=== PATIENT | male | born 1980 | race Two or more races ===

== ENCOUNTER 2018-01-29 16:05 | Emergency (ER) | payer MEDICAID ==
[~2018-01-29] VITALS: Ht 165.1 cm; Wt 96.0 kg
[2018-01-29 17:06] LABS: BASOPHILS % 0.7 % (0.0-2.0); EOSINOPHILS % 4.8 % (0.0-5.0); HEMATOCRIT. 41.4 % (42.0-52.0); HEMOGLOBIN. 14.4 g/dL (14.0-18.0); LYMPHOCYTES % 16.8 % (20.0-50.0); MEAN CORPUSCULAR HEMOGLOBIN 30.7 pg (28.0-32.0); MEAN CORPUSCULAR VOLUME 88.2 fL (80.0-94.0); MEAN PLATELET VOLUME 8.7 fl (7.4-10.4); MONOCYTES % 5.5 % (2.0-8.0); NEUTROPHILS % 72.2 % (40.0-76.0); PLATELET 289 x1000/uL (130-400); RED CELL DISTRIBUTION WIDTH 13.4 % (11.6-14.6)
[2018-01-29 17:09] LABS: CHLORIDE 109 mEq/L (98-107)
[2018-01-29 17:12] LABS: PARTIAL THROMBOPLASTIN TIME 28.2 sec (23.4-31.0); PROTHROMBIN TIME 10.9 sec (9.4-11.6)
[2018-01-29] MEDS ORDERED: ONDANSETRON HCL 4MG/2ML VIAL IV STA (18:33)
[2018-01-29] MEDS ORDERED: SODIUM CHLORIDE 0.9% 1,000 ML IV ONE (18:33)
[2018-01-29] MEDS ORDERED: MAGNESIUM/ALUMINUM HYDROXIDE/SIMETHICONE 30ML UDC PO STA (18:33)
[2018-01-29] MEDS ORDERED: KETOROLAC 30MG/ML VIAL IV STA (18:33)
[2018-01-29] MEDS ORDERED: MORPHINE SULFATE 4 MG/ML CPJ (NOT FOR IM USE) IV STA (18:33)
[2018-01-29] MEDS ORDERED: FAMOTIDINE 20MG/2ML VIAL IV ONE (18:45)
[2018-01-29 19:23] LABS: CREATINE KINASE 221 IU/L (39-308)
[2018-01-29 19:26] LABS: CLARITY URINE CLEAR (CLEAR); COLOR URINE DARK YELLOW (YELLOW); KETONES URINE TRACE (NEGATIVE); LEUKOCYTE ESTERASE URINE NEGATIVE (NEGATIVE); NITRITE URINE NEGATIVE (NEGATIVE); OCCULT BLOOD URINE NEGATIVE (NEGATIVE); PROTEIN URINE TRACE (NEGATIVE); SPECIFIC GRAVITY URINE 1.032 (1.005-1.030)
[2018-01-29 19:41] LABS: *AMPHETAMINES SCREEN URINE NEGATIVE (NEGATIVE); *BARBITURATES SCREEN URINE NEGATIVE (NEGATIVE); *BENZODIAZEPINES SCREEN URINE NEGATIVE (NEGATIVE); *COCAINE SCREEN URINE NEGATIVE (NEGATIVE); METHADONE URINE SCREEN NEGATIVE (NEGATIVE); OPIATES URINE SCREEN NEGATIVE (NEGATIVE)
[2018-01-29 19:42] LABS: CANNABINOID URINE SCREEN NEGATIVE (NEGATIVE); PHENCYCLIDINE URINE SCREEN NEGATIVE (NEGATIVE)
[2018-01-29 23:16] VITALS: BP 126/75
== END 2018-01-29 23:20 | disposition home or self-care (01) ==
LOC: ER 16:05
DX: M94.0 Chondrocostal junction syndrome [Tietze] (principal); N39.0 Urinary tract infection, site not specified; B34.9 Viral infection, unspecified; F41.9 Anxiety disorder, unspecified; Z79.899 Other long term (current) drug therapy
CPT/HCPCS: 36415; 71045; 74176; 80053; 80305; 81003; 82550; 83690; 84484; 85025; 85610; 85730; 93005; 96361; 96374; 96375; 99285; J1885; J2270; J2405; J3490; J7030

== ENCOUNTER 2018-02-01 16:26 | Emergency (ER) | payer MEDICAID ==
[~2018-02-01] VITALS: Ht 157.5 cm; Wt 94.0 kg
[2018-02-01] MEDS ORDERED: SODIUM CHLORIDE 0.9% 1,000 ML IV ONE (19:57)
[2018-02-01] MEDS ORDERED: LORAZEPAM 2MG/ML CPJ IV ONE (20:00)
[2018-02-01 20:26] LABS: BASOPHILS % 0.6 % (0.0-2.0); EOSINOPHILS % 2.9 % (0.0-5.0); HEMATOCRIT. 40.8 % (42.0-52.0); HEMOGLOBIN. 13.9 g/dL (14.0-18.0); LYMPHOCYTES % 21.6 % (20.0-50.0); MEAN CORPUSCULAR HEMOGLOBIN 30.2 pg (28.0-32.0); MEAN CORPUSCULAR VOLUME 88.6 fL (80.0-94.0); MEAN PLATELET VOLUME 8.6 fl (7.4-10.4); MONOCYTES % 6.2 % (2.0-8.0); NEUTROPHILS % 68.7 % (40.0-76.0); PLATELET 286 x1000/uL (130-400); RED CELL DISTRIBUTION WIDTH 13.2 % (11.6-14.6)
[2018-02-01 20:27] LABS: CHLORIDE 110 mEq/L (98-107)
[2018-02-02] MEDS ORDERED: KETOROLAC 30MG/ML VIAL IV ONE
[2018-02-02 00:42] VITALS: BP 150/79
== END 2018-02-02 00:42 | disposition home or self-care (01) ==
LOC: ER 17:06
DX: F41.9 Anxiety disorder, unspecified (principal); R07.9 Chest pain, unspecified; E86.0 Dehydration; Z72.0 Tobacco use
CPT/HCPCS: 36415; 70450; 80053; 84484; 85025; 93005; 96361; 96374; 96375; 99285; J1885; J2060; J7030; Z7610

== ENCOUNTER 2018-09-02 04:50 | Emergency (ER) | payer MEDICAID ==
[~2018-09-02] VITALS: Ht 167.6 cm; Wt 101.0 kg
[2018-09-02] MEDS ORDERED: KETOROLAC 30MG/ML VIAL IV STA (06:54)
[2018-09-02] MEDS ORDERED: HYDRALAZINE 20MG/ML VIAL IV ONE (07:00)
[2018-09-02 07:31] LABS: BASOPHILS % 0.3 % (0.0-2.0); HEMATOCRIT. 42.2 % (42.0-52.0); HEMOGLOBIN. 14.6 g/dL (14.0-18.0); LYMPHOCYTES % 15.3 % (20.0-50.0); MEAN CORPUSCULAR HEMOGLOBIN 30.7 pg (28.0-32.0); MEAN CORPUSCULAR VOLUME 88.7 fL (80.0-94.0); MEAN PLATELET VOLUME 8.3 fl (7.4-10.4); MONOCYTES % 5.7 % (2.0-8.0); NEUTROPHILS % 76.7 % (40.0-76.0); PLATELET 253 x1000/uL (130-400); RED BLOOD CELL COUNT 4.75 mill/uL (4.7-6.1)
[2018-09-02 07:37] LABS: CHLORIDE 107 mEq/L (98-107)
[2018-09-02] MEDS ORDERED: IOHEXOL-350 100 ML BOTTLE ONE (10:09)
[2018-09-02 11:01] VITALS: BP 128/85
== END 2018-09-02 11:19 | disposition home or self-care (01) ==
LOC: ER 04:50
DX: R07.89 Other chest pain (principal); M54.89 Other dorsalgia; M25.512 Pain in left shoulder; M25.511 Pain in right shoulder; I10 Essential (primary) hypertension
CPT/HCPCS: 36415; 71045; 71275; 80053; 84484; 85025; 85610; 93005; 96374; 96375; 99284; J0360; J1885; Q9967; Z7610

== ENCOUNTER 2018-12-11 19:21 | Emergency (ER) | payer MEDICAID ==
[~2018-12-11] VITALS: Ht 165.1 cm; Wt 99.3 kg
[2018-12-11] MEDS ORDERED: KETOROLAC 60MG/2ML VIAL IM ONE (22:45)
[2018-12-11 22:46] VITALS: BP 155/89
== END 2018-12-11 23:48 | disposition home or self-care (01) ==
LOC: ER 19:21
DX: M54.5 Low back pain (principal); I10 Essential (primary) hypertension; W01.0XXA Fall on same level from slipping, tripping and stumbling without subsequent striking against object, initial encounter; Y93.89 Activity, other specified; Y92.89 Other specified places as the place of occurrence of the external cause; Y99.0 Civilian activity done for income or pay; Z91.14 Patient's other noncompliance with medication regimen; F17.210 Nicotine dependence, cigarettes, uncomplicated; Z71.6 Tobacco abuse counseling
CPT/HCPCS: 72070; 72100; 96372; 99283; 99406; J1885

== ENCOUNTER 2019-01-07 16:04 | Emergency (ER) | payer MEDICAID ==
[~2019-01-07] VITALS: Ht 162.6 cm; Wt 102.8 kg
[2019-01-07 16:17] VITALS: BP 148/103
[2019-01-07] MEDS ORDERED: IBUPROFEN 600MG TABLET PO ONE (18:15)
== END 2019-01-07 18:26 | disposition home or self-care (01) ==
LOC: ER 16:04
DX: M54.5 Low back pain (principal); M54.2 Cervicalgia; H53.8 Other visual disturbances; F17.200 Nicotine dependence, unspecified, uncomplicated; R51 Headache; R42 Dizziness and giddiness; R11.0 Nausea
CPT/HCPCS: 99281

== ENCOUNTER 2019-08-19 04:18 | Inpatient (IN) | payer MEDICAID, OTHER ==
[~2019-08-19] VITALS: Ht 162.6 cm; Wt 98.4 kg
[2019-08-19 08:04] LABS: BASOPHILS % 0.7 % (0.0-2.0); EOSINOPHILS % 4.2 % (0.0-5.0); HEMATOCRIT. 41.4 % (42.0-52.0); HEMOGLOBIN. 14.3 g/dL (14.0-18.0); LYMPHOCYTES % 20.8 % (20.0-50.0); MEAN CORPUSCULAR HEMOGLOBIN 31.5 pg (28.0-32.0); MEAN CORPUSCULAR VOLUME 91.2 fL (80.0-94.0); MEAN PLATELET VOLUME 8.8 fl (7.4-10.4); MONOCYTES % 6.5 % (2.0-8.0); NEUTROPHILS % 67.8 % (40.0-76.0); PLATELET 282 x1000/uL (130-400); RED BLOOD CELL COUNT 4.55 mill/uL (4.7-6.1); RED CELL DISTRIBUTION WIDTH 13.2 % (11.6-14.6)
[2019-08-19 08:12] LABS: CHLORIDE 110 mEq/L (98-107)
[2019-08-19] MEDS ORDERED: ACETAMINOPHEN 325MG TABLET PO ONE (08:45)
[2019-08-19] MEDS ORDERED: IOHEXOL-350 100 ML BOTTLE ONE (10:35)
[2019-08-19] MEDS ORDERED: ASPIRIN 81MG TABLET PO ONE (12:00)
[2019-08-19] MEDS ORDERED: LABETALOL 5MG/ML SYR 20 MG/4 ML SYRINGE IV ONE (12:45)
[2019-08-19] MEDS ORDERED: LIDOCAINE 5% PATCH TOP SCH (13:30)
[2019-08-19] MEDS ORDERED: ACETAMINOPHEN 325MG TABLET PO PRN (15:15)
[2019-08-19] MEDS ORDERED: ONDANSETRON HCL 4MG/2ML INJ IV PRN (15:15)
[2019-08-19] MEDS ORDERED: AMLODIPINE 5MG TABLET PO SCH (16:45)
[2019-08-19] MEDS ORDERED: REGADENOSON 0.4 MG/5 ML IV ONE (17:00)
[2019-08-19 17:34] VITALS: BP 162/90
[2019-08-19 18:00] VITALS: BP 162/90
[2019-08-19] MEDS ORDERED: IBUP-2437 PO (18:11)
[2019-08-19 20:00] VITALS: BP 139/87
[2019-08-19] MEDS: HEPARIN 5000 UNITS/ML VIAL SUBCUT SCH (22:59)
[2019-08-19] MEDS: ATORVASTATIN CALCIUM 10MG TABLET PO SCH (22:59)
[2019-08-19 23:08] LABS: *AMPHETAMINES SCREEN URINE NEGATIVE (NEGATIVE); *BARBITURATES SCREEN URINE NEGATIVE (NEGATIVE); *BENZODIAZEPINES SCREEN URINE NEGATIVE (NEGATIVE); *COCAINE SCREEN URINE NEGATIVE (NEGATIVE)
[2019-08-19 23:09] LABS: CANNABINOID URINE SCREEN NEGATIVE (NEGATIVE); METHADONE URINE SCREEN NEGATIVE (NEGATIVE); OPIATES URINE SCREEN NEGATIVE (NEGATIVE); PHENCYCLIDINE URINE SCREEN NEGATIVE (NEGATIVE)
[2019-08-20] VITALS: BP 143/68
[2019-08-20 04:00] VITALS: BP 141/84
[2019-08-20 07:06] LABS: BASOPHILS % 0.5 % (0.0-2.0); EOSINOPHILS % 4.1 % (0.0-5.0); HEMATOCRIT. 39.8 % (42.0-52.0); HEMOGLOBIN. 13.8 g/dL (14.0-18.0); LYMPHOCYTES % 21.5 % (20.0-50.0); MEAN CORPUSCULAR HEMOGLOBIN 31.7 pg (28.0-32.0); MEAN CORPUSCULAR VOLUME 91.5 fL (80.0-94.0); MEAN PLATELET VOLUME 9.2 fl (7.4-10.4); MONOCYTES % 6.3 % (2.0-8.0); NEUTROPHILS % 67.6 % (40.0-76.0); PLATELET 269 x1000/uL (130-400); RED BLOOD CELL COUNT 4.34 mill/uL (4.7-6.1); RED CELL DISTRIBUTION WIDTH 13.3 % (11.6-14.6)
[2019-08-20 08:00] VITALS: BP 117/82
[2019-08-20 08:28] LABS: CHLORIDE 110 mEq/L (98-107)
[2019-08-20 08:35] LABS: LDL CHOLESTEROL 83 mg/dL (5-100)
[2019-08-20 08:36] LABS: HDL CHOLESTEROL 33 mg/dL (40-59)
[2019-08-20] MEDS: HEPARIN 5000 UNITS/ML VIAL SUBCUT SCH ×2 (09:00→20:11)
[2019-08-20] MEDS: AMLODIPINE 5MG TABLET PO SCH (09:00)
[2019-08-20] MEDS ORDERED: REGADENOSON 0.4 MG/5 ML IV ONE (10:35)
[2019-08-20 12:00] VITALS: BP 131/72
[2019-08-20] MEDS: TRAMADOL 50MG TABLET PO PRN ×2 (15:40→21:45)
[2019-08-20 16:00] VITALS: BP 133/76
[2019-08-20 20:00] VITALS: BP 146/98
[2019-08-20] MEDS: ATORVASTATIN CALCIUM 10MG TABLET PO SCH (20:12)
[2019-08-21] VITALS: BP_SYST 156; BP_SYST 157; BP_SYST 163; BP_DIAS 109; BP_DIAS 112; BP_DIAS 96
[2019-08-21] MEDS ORDERED: DIPHENHYDRAMINE 25MG CAPSULE PO PRN ×2 (02:30→02:34)
[2019-08-21] MEDS ORDERED: CLONIDINE 0.1MG TABLET PO PRN (02:30)
[2019-08-21 04:00] VITALS: BP 134/89
[2019-08-21 08:00] VITALS: BP 125/65
[2019-08-21] MEDS: HEPARIN 5000 UNITS/ML VIAL SUBCUT SCH (08:54)
[2019-08-21] MEDS: AMLODIPINE 5MG TABLET PO SCH (08:55)
[2019-08-21 12:00] VITALS: BP 129/71
[2019-08-21] MEDS ORDERED: IBUP-2437 PO (13:10)
[2019-08-21] MEDS ORDERED: TOPUD PO (13:10)
[2019-08-21] MEDS ORDERED: AMLO5TAB88 PO (13:10)
[2019-08-21] MEDS ORDERED: TRAM50TA3 PO (13:11)
[2019-08-21 14:49] VITALS: BP 134/83
[2019-08-21 16:00] VITALS: BP 113/78
== END 2019-08-21 16:55 | disposition home or self-care (01) | DRG 347 ==
LOC: ER 04:49 → 5WST 15:04 → EDBEDREQ 15:10 → EDBEDREQTM 15:10 → ENRESERV 15:27 → EDBEDREQTM 16:11 → CANBEDREQ 19:27
PROVIDERS: ADMIT Internal Medicine; ATTEND Internal Medicine
DX: M48.061 Spinal stenosis, lumbar region without neurogenic claudication (principal); E87.8 Other disorders of electrolyte and fluid balance, not elsewhere classified; I11.9 Hypertensive heart disease without heart failure; F17.200 Nicotine dependence, unspecified, uncomplicated; R07.89 Other chest pain
CPT/HCPCS: 36415; 71045; 71275; 72148; 78452; 80053; 80061; 80305; 83036; 83735; 83880; 84484; 85025; 93005; 93017; 93306; 97162; 99285; A9500; J1644; J2785; J3490; Q0163; Q9967

== ENCOUNTER 2019-09-10 23:38 | Emergency (ER) | payer MEDICAID, OTHER ==
[~2019-09-10] VITALS: Ht 160 cm; Wt 98.6 kg
[~2019-09-10 23:38] MED LIST: AMLO5TAB88 PO; IBUP-2437 PO; TOPUD PO; TRAM50TA3 PO
[2019-09-11 03:07] LABS: BASOPHILS % 0.5 % (0.0-2.0); EOSINOPHILS % 4.1 % (0.0-5.0); HEMATOCRIT. 40.2 % (42.0-52.0); HEMOGLOBIN. 13.8 g/dL (14.0-18.0); LYMPHOCYTES % 22.5 % (20.0-50.0); MEAN CORPUSCULAR HEMOGLOBIN 31.5 pg (28.0-32.0); MEAN CORPUSCULAR VOLUME 91.7 fL (80.0-94.0); MEAN PLATELET VOLUME 8.5 fl (7.4-10.4); NEUTROPHILS % 65.9 % (40.0-76.0); PLATELET 238 x1000/uL (130-400); RED BLOOD CELL COUNT 4.38 mill/uL (4.7-6.1); RED CELL DISTRIBUTION WIDTH 13.3 % (11.6-14.6)
[2019-09-11 03:35] LABS: CHLORIDE 109 mEq/L (98-107)
[2019-09-11] MEDS ORDERED: SODIUM CHLORIDE 0.9% 1,000 ML IV ONE (04:06)
[2019-09-11] MEDS ORDERED: IOHEXOL-350 100 ML BOTTLE ONE (07:01)
[2019-09-11 07:08] VITALS: BP 126/82
== END 2019-09-11 07:09 | disposition home or self-care (01) ==
LOC: ER 23:38
DX: R07.89 Other chest pain (principal); R20.0 Anesthesia of skin; R11.0 Nausea; R19.7 Diarrhea, unspecified; I10 Essential (primary) hypertension; Z79.899 Other long term (current) drug therapy
CPT/HCPCS: 36415; 71045; 71275; 80053; 84484; 85025; 85379; 93005; 99285; Q9967

== ENCOUNTER 2020-02-05 16:15 | Emergency (ER) | payer MEDICAID ==
[~2020-02-05] VITALS: Ht 160 cm; Wt 99.0 kg
[2020-02-05 16:26] VITALS: BP 167/100
[2020-02-05] MEDS ORDERED: KETOROLAC 60MG/2ML VIAL IM ONE (17:00)
[2020-02-05 17:52] LABS: CLARITY URINE CLEAR (CLEAR); COLOR URINE YELLOW (YELLOW); KETONES URINE NEGATIVE (NEGATIVE); LEUKOCYTE ESTERASE URINE NEGATIVE (NEGATIVE); NITRITE URINE NEGATIVE (NEGATIVE); OCCULT BLOOD URINE 2+ (NEGATIVE); PH URINE 5.5 (4.5-8.0); PROTEIN URINE TRACE (NEGATIVE); SPECIFIC GRAVITY URINE 1.025 (1.005-1.030); UROBILINOGEN URINE 0.2 E.U./dL (0.2-1.0)
== END 2020-02-05 20:06 | disposition home or self-care (01) ==
LOC: ER 16:15
DX: M54.5 Low back pain (principal); M54.30 Sciatica, unspecified side; I10 Essential (primary) hypertension
CPT/HCPCS: 76770; 81003; 96372; 99284; J1885

== ENCOUNTER 2022-10-03 09:19 | Emergency (ER) | payer MEDICAID ==
[~2022-10-03] VITALS: Ht 165.1 cm; Wt 109.2 kg
[~2022-10-03 09:19] MED LIST changes: +IBUP-2029 MT
[2022-10-03 09:30] VITALS: BP 169/84
[2022-10-03 10:58] LABS: CLARITY URINE CLEAR (CLEAR); COLOR URINE YELLOW (YELLOW); KETONES URINE NEGATIVE (NEGATIVE); LEUKOCYTE ESTERASE URINE TRACE (NEGATIVE); NITRITE URINE NEGATIVE (NEGATIVE); OCCULT BLOOD URINE NEGATIVE (NEGATIVE); PH URINE 5.5 (4.5-8.0); PROTEIN URINE NEGATIVE (NEGATIVE); SPECIFIC GRAVITY URINE 1.015 (1.005-1.030); UROBILINOGEN URINE 0.2 E.U./dL (0.2-1.0)
[2022-10-03] MEDS ORDERED: KETOROLAC 30MG/ML VIAL IM ONE (15:00)
[2022-10-03 15:02] LABS: BASOPHILS % 0.5 % (0.0-2.0); HEMATOCRIT. 41.8 % (42.0-52.0); HEMOGLOBIN. 14.1 g/dL (14.0-18.0); LYMPHOCYTES % 12.7 % (20.0-50.0); MEAN CORPUSCULAR HEMOGLOBIN 31.6 pg (28.0-32.0); MEAN CORPUSCULAR VOLUME 93.4 fL (80.0-94.0); MEAN PLATELET VOLUME 8.2 fl (7.4-10.4); MONOCYTES % 5.4 % (2.0-8.0); NEUTROPHILS % 80.4 % (40.0-76.0); PLATELET 258 x1000/uL (130-400); RED BLOOD CELL COUNT 4.47 mill/uL (4.7-6.1); RED CELL DISTRIBUTION WIDTH 15.1 % (11.6-14.6)
[2022-10-03 15:20] LABS: CHLORIDE 111 mEq/L (98-107)
[2022-10-03] MEDS ORDERED: PHEN-815 MT (15:58)
[2022-10-03] MEDS ORDERED: CEPH500C2 MT (15:58)
[2022-10-03] MEDS ORDERED: CEPHALEXIN 250MG CAPSULE PO ONE (16:00)
== END 2022-10-03 16:39 | disposition home or self-care (01) ==
LOC: ER 09:37
DX: N39.0 Urinary tract infection, site not specified (principal); I10 Essential (primary) hypertension; Z98.890 Other specified postprocedural states
CPT/HCPCS: 36415; 80048; 81003; 85025; 96372; 99283; J1885

== ENCOUNTER 2022-10-09 15:30 | Emergency (ER) | payer MEDICAID ==
[~2022-10-09] VITALS: Ht 165.1 cm; Wt 104.0 kg
[~2022-10-09 15:30] MED LIST changes: +CEPH500C2 MT; +PHEN-815 MT
[2022-10-09 15:38] VITALS: BP 167/114
[2022-10-09 21:33] LABS: BASOPHILS % 0.6 % (0.0-2.0); EOSINOPHILS % 0.8 % (0.0-5.0); HEMATOCRIT. 43.1 % (42.0-52.0); HEMOGLOBIN. 14.4 g/dL (14.0-18.0); LYMPHOCYTES % 17.5 % (20.0-50.0); MEAN CORPUSCULAR HEMOGLOBIN 31.1 pg (28.0-32.0); MEAN PLATELET VOLUME 8.1 fl (7.4-10.4); NEUTROPHILS % 74.1 % (40.0-76.0); PLATELET 317 x1000/uL (130-400); RED BLOOD CELL COUNT 4.63 mill/uL (4.7-6.1); RED CELL DISTRIBUTION WIDTH 15.2 % (11.6-14.6)
[2022-10-09 21:40] LABS: CHLORIDE 112 mEq/L (98-107)
[2022-10-09 21:54] LABS: CLARITY URINE CLEAR (CLEAR); COLOR URINE YELLOW (YELLOW); KETONES URINE NEGATIVE (NEGATIVE); LEUKOCYTE ESTERASE URINE NEGATIVE (NEGATIVE); NITRITE URINE NEGATIVE (NEGATIVE); OCCULT BLOOD URINE NEGATIVE (NEGATIVE); PROTEIN URINE NEGATIVE (NEGATIVE); UROBILINOGEN URINE 0.2 E.U./dL (0.2-1.0)
[2022-10-09] MEDS ORDERED: DOXY-456 MT (22:06)
[2022-10-09] MEDS ORDERED: CEPHALEXIN 250MG CAPSULE PO ONE (22:15)
[2022-10-09] MEDS ORDERED: DOXYCYCLINE HYCLATE 100MG CAPSULE PO ONE (22:15)
== END 2022-10-09 22:25 | disposition home or self-care (01) ==
LOC: ER 15:30
DX: N34.2 Other urethritis (principal); I10 Essential (primary) hypertension
CPT/HCPCS: 36415; 80048; 81003; 85025; 87591; 99283

== ENCOUNTER 2023-03-23 21:25 | Emergency (ER) | payer MEDICAID ==
[~2023-03-23] VITALS: Ht 165.1 cm; Wt 116.2 kg
[~2023-03-23 21:25] MED LIST changes: +DOXY-456 MT
[2023-03-23 21:57] VITALS: O2SAT 98
[2023-03-23 23:01] LABS: CLARITY URINE CLEAR (CLEAR); COLOR URINE YELLOW (YELLOW); GLUCOSE URINE NEGATIVE (NEGATIVE); KETONES URINE TRACE (NEGATIVE); LEUKOCYTE ESTERASE URINE NEGATIVE (NEGATIVE); NITRITE URINE NEGATIVE (NEGATIVE); OCCULT BLOOD URINE NEGATIVE (NEGATIVE); PH URINE 5.5 (4.5-8.0); PROTEIN URINE NEGATIVE (NEGATIVE); SPECIFIC GRAVITY URINE 1.023 (1.005-1.030)
[2023-03-23 23:04] LABS: BASOPHILS % 0.8 % (0.0-2.0); HEMATOCRIT. 37.5 % (42.0-52.0); LYMPHOCYTES % 27.2 % (20.0-50.0); MEAN CORPUSCULAR HEMOGLOBIN 30.7 pg (28.0-32.0); MEAN CORPUSCULAR HGB CONC 34.5 g/dL (31.0-37.0); MEAN CORPUSCULAR VOLUME 88.9 fL (80.0-94.0); MEAN PLATELET VOLUME 8.6 fl (7.4-10.4); MONOCYTES % 8.6 % (2.0-8.0); NEUTROPHILS % 58.4 % (40.0-76.0); PLATELET 314 x1000/uL (130-400); RED BLOOD CELL COUNT 4.22 mill/uL (4.7-6.1); RED CELL DISTRIBUTION WIDTH 13.6 % (11.6-14.6); WHITE BLOOD COUNT 9.3 x1000/uL (4.5-11.0)
[2023-03-23 23:05] LABS: CHLORIDE 109 mEq/L (98-107); INDEX HEMOLYSI 1 (1-3); INDEX ICTERIC 1 (1-4); INDEX LIPEMIC 1 (1-3); POTASSIUM 3.4 mEq/L (3.5-5.1); SODIUM 140 mEq/L (136-145)
[2023-03-23 23:13] LABS: ALANINE AMINOTRANSFERASE 98 IU/L (13-61); ALBUMIN 3.4 g/dL (3.4-5.0); ASPARTATE AMINOTRANSFERASE 56 IU/L (15-37); BILIRUBIN TOTAL 0.3 mg/dL (0.1-1.0); CALCIUM 8.1 mg/dL (8.5-10.1); CARBON DIOXIDE 25 mEq/L (21-32); CREATINE KINASE 351 IU/L (39-308); CREATININE 1.3 mg/dL (0.6-1.3); ETHANOL BLOOD < 10 mg/dL (-10); GLUCOSE 103 mg/dL (70-105); NT PRO B-TYPE NATRIURETIC PEP 27 pg/mL (5-125); PHOSPHORUS 3.4 mg/dL (2.5-4.9); PROTEIN TOTAL 7.4 g/dL (6.0-8.3); TROPONIN I HIGH SENSITIVITY 7 ng/L (<78); UREA NITROGEN BLOOD 21 mg/dL (7-21)
[2023-03-23 23:19] LABS: *AMPHETAMINES SCREEN URINE NEGATIVE (NEGATIVE); *BARBITURATES SCREEN URINE NEGATIVE (NEGATIVE); *BENZODIAZEPINES SCREEN URINE NEGATIVE (NEGATIVE); *COCAINE SCREEN URINE NEGATIVE (NEGATIVE); CANNABINOID URINE SCREEN NEGATIVE (NEGATIVE); ECSTASY MDMA SCREEN URINE NEGATIVE (NEGATIVE); METHADONE URINE SCREEN NEGATIVE (NEGATIVE); OPIATES URINE SCREEN NEGATIVE (NEGATIVE); PHENCYCLIDINE URINE SCREEN NEGATIVE (NEGATIVE)
[2023-03-24] MEDS ORDERED: POTASSIUM CHLORIDE 20MEQ TABLET SR PO ONE (00:30)
[2023-03-24] MEDS ORDERED: CALCIUM 1250MG TABLET (500MG ELEMENTAL CALCIUM) PO ONE (00:30)
[2023-03-24] MEDS ORDERED: IBUPROFEN 400MG TABLET PO ONE (00:30)
[2023-03-24 01:26] VITALS: BP 126/86
[2023-03-24] MEDS ORDERED: CALCIUM CARBONATE 500MG TABLET CHEW PO NR (01:30)
[2023-03-24 02:05] VITALS: PULSE 94; RESP 14; TEMP 98.7
== END 2023-03-24 02:06 | disposition home or self-care (01) ==
LOC: ER 21:41
DX: M79.10 Myalgia, unspecified site (principal); R51.9 Headache, unspecified; I10 Essential (primary) hypertension
CPT/HCPCS: 36415; 71045; 80053; 80305; 80320; 81003; 82550; 83735; 83880; 84100; 84484; 85025; 93005; 99285; G0480